=== PATIENT | female | born 1990 | race Caucasian/White ===

== ENCOUNTER → 2017-06-10 | Outpatient (CLI) | payer BC ==
[~2017-06-10] MED LIST: PROACE100 PO; RXPROACE PO
[2017-06-11 13:07] LABS: Source VAG/CERVIX
== END | disposition home or self-care (01) ==
LOC: LAB 11:14
PROVIDERS: Obstetrics & Gynecology
DX: Z01.419 Encounter for gynecological examination (general) (routine) without abnormal findings (principal)
CPT/HCPCS: G0123

== ENCOUNTER → 2020-11-15 | Outpatient (CLI) | payer BC ==
[2020-11-17 00:07] LABS: CHLAMYDIA TRACHOMATIS, NAA Negative (Negative); HPV 16 Negative (Negative); HPV 18 Negative (Negative); HPV OTHER HR TYPES Negative (Negative)
== END | disposition home or self-care (01) ==
LOC: LAB 11:18 → LAB SHORT 11:18
PROVIDERS: Obstetrics & Gynecology
DX: Z01.419 Encounter for gynecological examination (general) (routine) without abnormal findings (principal)
CPT/HCPCS: 87491; 87591; 87624; G0123

== ENCOUNTER 2024-02-06 22:42 | Emergency (ER) | payer BC ==
[~2024-02-06] VITALS: Ht 170.2 cm; Wt 63.5 kg
[2024-02-06 22:49] VITALS: BP 130/82
[2024-02-06] MEDS ORDERED: AMOCLA875 PO (23:34)
[2024-02-06] MEDS ORDERED: Amoxicillin/Clavulanate K 875 MG Tab PO ONE (23:35)
== END 2024-02-07 00:04 | disposition home or self-care (01) ==
LOC: ER 22:42
DX: S01.511A Laceration without foreign body of lip, initial encounter (principal); W55.03XA Scratched by cat, initial encounter; Z79.899 Other long term (current) drug therapy
CPT/HCPCS: 12011; 99283-25; A9270

== ENCOUNTER → 2025-01-08 | Outpatient (CLI) | payer BC ==
[~2025-01-08] MED LIST changes: +AMOCLA875 PO
[2025-01-15 14:47] LABS: HPVG SOURCE Cervical/Vag
== END | disposition home or self-care (01) ==
LOC: LAB 10:48 → LAB SHORT 10:48
PROVIDERS: Obstetrics & Gynecology
DX: Z01.419 Encounter for gynecological examination (general) (routine) without abnormal findings (principal)
CPT/HCPCS: 87624; 87625; G0145